=== PATIENT | male | born 1945 | race Caucasian/White ===

== ENCOUNTER → 2024-02-20 08:06 | Outpatient (REF) | payer MEDICARE, OTHER, SELFPAY | LOC: DHCBS MAIN 08:06 | PROVIDERS: ATTENDING PHYSICIAN Internal Medicine Cardiovascular Disease; FAMILY PHYSICIAN Family Medicine | DX: I48.21 Permanent atrial fibrillation (principal); I45.2 Bifascicular block; I70.0 Atherosclerosis of aorta | CPT/HCPCS: 93306 ==